=== PATIENT | male | born 1985 | race Caucasian/White ===

== ENCOUNTER 2019-05-15 19:17 | Emergency (ER) | payer OTHER ==
[~2019-05-15] VITALS: Ht 185.4 cm; Wt 97.5 kg
[2019-05-15 19:43] VITALS: BP 150/78
[2019-05-15] MEDS ORDERED: METH4TAB2 PO (20:15)
--- NOTE | 2019-05-15 20:15 | PHYS DOC ---
Past Medical History Past Medical History: No Pertinent History, Other Additional Past Medical Histor: chronic back pain Past Surgical History: No Surgical History Alcohol Use: None Drug Use: None Adult General Chief Complaint Chief Complaint: LOWER BACK PAIN OR INJURY HPI HPI Patient is a 33 year old male who presents with complaining of low back pain. Patient states he had intermittent episodes of low back pain with radiation to left thigh for the last one half years but for the last 2 months has constant pain that getting worse today after he had MRI this morning noted by his primary care physician. Patient states he has had several episodes of urinary incontinence with the last one 3 days ago and had problem with erection. Patient complaining of numbness of his toes intermittently. Patient denies recent injury and states currently taking Flexeril and Naprosyn and does not want to have pain medication. Patient states he had previous workup with diagnosis of bulging disc. Review of Systems Review of Systems Constitutional: Denies fever or chills [] Eyes: Denies change in visual acuity, redness, or eye pain [] HENT: Denies nasal congestion or sore throat [] Respiratory: Denies cough or shortness of breath [] Cardiovascular: No additional information not addressed in HPI [] GI: Denies abdominal pain, nausea, vomiting, bloody stools or diarrhea [] : Denies dysuria or hematuria [] Musculoskeletal: Reports back pain Integument: Denies rash or skin lesions [] Neurologic: Denies headache, focal weakness or sensory changes [] Endocrine: Denies polyuria or polydipsia [] All other systems were reviewed and found to be within normal limits, except as documented in this note. Current Medications Current Medications Current Medications Medications (Trade) Dose Ordered Sig/[facility] Start Time Stop Time Status Last Admin Dose Admin Dexamethasone Sodium Phosphate (Decadron) 10 mg 1X ONCE 05/15/19 20:15 05/15/19 20:16 UNV Physical Exam Physical Exam Constitutional: Well developed, well nourished, mild distress, non-toxic appearance. [] HENT: Normocephalic, atraumatic. Eyes: PERRLA, EOMI, conjunctiva normal, no discharge. [] Neck: Normal range of motion, no tenderness, supple, no stridor. [] Cardiovascular:Heart rate regular rhythm, no murmur [] Lungs & Thorax: Bilateral breath sounds clear to auscultation [] Abdomen: Bowel sounds normal, soft, no tenderness, no masses, no pulsatile masses. [] Skin: Warm, dry, no erythema, no rash. [] Back: No midline tenderness, painful range of motion of lumbar spine, no CVA tenderness. [] Extremities: No tenderness, no cyanosis, no clubbing, ROM intact, no edema. [] Neurologic: Alert and oriented X 3, no focal deficits noted. [] Psychologic: Affect normal, judgement normal, mood normal. [] Current Patient Data Vital Signs Vital Signs Date Time Temp Pulse Resp B/P (MAP) Pulse Ox O2 Delivery O2 Flow Rate FiO2 05/15/19 19:43 98.8 104 20 150/78 (102) 100 Room Air 98.8 EKG EKG [] Radiology/Procedures Radiology/Procedures [] Course & Med Decision Making Course & Med Decision Making Evaluation of patient in ER showed 33-year-old male patient with chronic low back pain that getting worse recently.. Patient had MRI ordered by primary care physician today with pending results. Patient did not acute neurodeficit in ER and didn't want off narcotic pain medication. Patient treated with dexamethasone and advised to continue home pain medication and prescription for Medrol Dosepak was given. Patient was advised to follow-up with his primary care physician and back specialist. Dragon Disclaimer Dragon Disclaimer This electronic medical record was generated, in whole or in part, using a voice recognition dictation system. Departure Departure Impression: Primary Impression: Sciatica Disposition: HOME, SELF-CARE (at 2012) Condition: STABLE Referrals: UNKNOWN PCP NAME (PCP) Patient Instructions: Sciatica Additional Instructions: Apply ice on your back Follow-up with your primary care physician in 2-3 days Return to ER if not getting better Continue current medications Scripts Methylprednisolone (MEDROL) 4 Mg Tab.ds.pk 1 PKG PO UD for inflammation, #1 PKG Prov: DIETER BEVERLY MD 05/15/19 Problem Qualifiers Primary Impression: Sciatica Laterality: left Qualified Codes: M54.32 - Sciatica, left side DIETER BEVERLY MD May 15, 2019 20:15
[2019-05-15] MEDS ORDERED: DEXAMETHASONE SOD PHOS 20 MG/5 ML VIAL. IM ONE (20:30)
== END 2019-05-15 20:27 | disposition home or self-care (01) ==
LOC: ER 19:17
DX: M54.42 Lumbago with sciatica, left side (principal); G89.29 Other chronic pain
CPT/HCPCS: 96372; 99283; J1100

== ENCOUNTER → 2020-04-05 | Outpatient (CLI) | payer OTHER ==
[~2020-04-05] MED LIST: METH4TAB2 PO
== END | disposition home or self-care (01) ==
LOC: LAB 14:14
PROVIDERS: ATTEND Surgery
DX: Z01.818 Encounter for other preprocedural examination (principal); Z11.59 Encounter for screening for other viral diseases; M79.632 Pain in left forearm
CPT/HCPCS: U0003-CS

== ENCOUNTER → 2020-04-08 | Day surgery (SDC) | payer OTHER ==
[~2020-04-08] MED LIST changes: +AMLO5TAB10 PO; +CETI10TA16 PO; +LIDOCAINE 1%/EPI 1:100,000 20 ML VIAL. INJ ONE; +METF500T16 PO; +NAPR-514 PO; +PANT40TA77 PO; +ZOLP5TAB5 PO
--- NOTE | 2020-04-08 12:16 | PDOC4 ---
Operative Note Operative Note Date: 2019 at 1214 Preoperative diagnosis: Left forearm mass Postoperative diagnosis: Same Procedure: Excision of left forearm mass Specimen: Left forearm mass Surgeon: Herman Dictation: Patient is 34-year-old gentleman is complaining of enlarging mass in his left forearm has been uncomfortable at times. Procedure of excision of mass was explained to the patient detail was benefits were also discussed including bleeding infection alternatives to this procedure also discussed with patient who seemed to understand and gave both verbal and written consent to have the procedure performed. Patient was taken to the minors room placed in the supine position his left forearm over the mass was prepped and draped usual sterile fashion using ChloraPrep. An area over the mass was injected with 1% lidocaine with epinephrine once this was anesthetized and incision was made with 15 blade scalpel and the mass was excised sharply appear to be a lipoma approximately 2 cm in diameter. The wound was then closed in 1 layer of 4-0 Monocryl subcuticular stitch. Mastisol Steri-Strips and island dressing were applied. Patient tolerated procedure well was discharged home in stable condition all sponge instrument needle counts listed as correct estimated blood loss less than 5 mL WES MALDONADO MD Apr 08, 2020 12:16
--- NOTE | 2020-04-08 12:17 | DISCH ---
DISCHARGE INSTRUCTIONS Condition on Discharge Condition on Discharge: Stable Activity After Discharge Activity Instructions for Disc: Activity as tolerated Diet after Discharge Diet after Discharge: Regular Wound Incision Care Other wound/incision instructi: May shower in 24 hours Contacting the [facility] after DC Call your doctor for: If your condition worsens Follow-Up Follow up with: Dr. Maldonado in 2 weeks WES MALDONADO MD Apr 08, 2020 12:17
--- NOTE | 2020-04-12 14:07 | PATHOLOGY ---
[facility] Accession Number: [id number] . 01 Material submitted: . forearm - LEFT FOREARM MASS. Modifiers: left . 01 Clinical history: . LEFT FOREARM MASS . 02 Diagnosis: Soft tissue, "left forearm mass", excision: - Angiolipoma; negative for malignancy. . (MLK:mml; 04/11/2020) [facility] 04/12/2020 1358 Local . 02 Electronically signed: . Shira Mendieta MD, Pathologist NPI- [id number] . 01 Gross description: . The specimen is received in formalin, labeled "Vincent Bunn, left forearm mass" and consists of a segment of yellow lobulated tissue measuring 1.7 x 0.9 x 0.5 cm. Sectioning is homogeneous cut surfaces and the specimen is entirely submitted in A1. (SDY; 04/08/2020) SYU/SYU 04/11/2020 1406 Local . 02 Pathologist provided ICD-10: D17.22 . 02 CPT . 063350 Specimen Comment: A courtesy copy of this report has been sent to [phone], [phone] Specimen Comment: [id number] Specimen Comment: Report sent to / DR KINNEY Performed at: 01 [facility] [address], [place], [place] [id number] MD Pedro Angel MD Phone: [phone] Performed at: 02 [facility] [address] [place], [place] [id number] MD Shaun Verdin MD Phone: [phone]
== END | disposition home or self-care (01) ==
LOC: SURG 11:11
PROVIDERS: ATTEND Surgery
DX: M79.89 Other specified soft tissue disorders (principal); D17.22 Benign lipomatous neoplasm of skin and subcutaneous tissue of left arm; E66.9 Obesity, unspecified; I10 Essential (primary) hypertension; G43.909 Migraine, unspecified, not intractable, without status migrainosus; F41.9 Anxiety disorder, unspecified; G47.00 Insomnia, unspecified; M19.90 Unspecified osteoarthritis, unspecified site; R73.03 Prediabetes; Z87.891 Personal history of nicotine dependence; Z68.33 Body mass index [BMI] 33.0-33.9, adult; Z79.84 Long term (current) use of oral hypoglycemic drugs; Z79.899 Other long term (current) drug therapy
CPT/HCPCS: 25075; J3490; 88304